=== PATIENT | female | born 1990 | race African-American/Black ===

== ENCOUNTER 2016-06-04 11:07 | Emergency (ER) | payer BC ==
[~2016-06-04 11:07] MED LIST: BACTRIM DS TABL1 TA1 PO; FLEXERIL10 MG PO; NO MEDICATIONS; VOLTAREN75 MG PO
[2016-06-04 11:11] LABS: URINE SOURCE CLEAN CATCH
[2016-06-04 11:15] LABS: URINE APPEARANCE SL CLOUDY; URINE BILIRUBIN NEG (NEG); URINE BLOOD TRACE-INTACT (NEG); URINE COLOR YELLOW; URINE GLUCOSE NEG (NORM); URINE KETONE NEG (NEG); URINE LEUKOCYTE ESTERASE 3+ (NEG); URINE NITRATE NEG (NEG); URINE PROTEIN NEG (NEG); URINE SPECIFIC GRAVITY 1.025 (1.003-1.035); URINE UROBILINOGEN 0.2 MG/DL (NORM)
[2016-06-04 11:19] LABS: MICRO INDICATED? YES
[2016-06-04 11:35] LABS: CULTURE INDICATED? YES; URINE BACTERIA 2+ (NEG); URINE RBC 0-2 /[HPF] (0-2); URINE SQUAMOUS EPITHELIAL CELL MANY /[HPF]; URINE WBC 25-50 /[HPF] (0-5)
[2016-06-05 16:45] LABS: CHLAMYDIA TRACH Not Detected (Not Detected); N GONOR Not Detected (Not Detected)
== END 2016-06-04 12:45 | disposition home or self-care (01) ==
LOC: SED 11:07
PROVIDERS: Nurse Practitioner
DX: N89.8 Other specified noninflammatory disorders of vagina (principal); N39.0 Urinary tract infection, site not specified
CPT/HCPCS: 81003; 84703; 87086; 87210; 87491; 87591; 87808; 87905; 99284